=== PATIENT | female | born 1930 | race Caucasian/White ===

== ENCOUNTER 2017-03-29 20:55 | Emergency (ER) | payer OTHER ==
--- NOTE | 2017-03-29 21:06 | PDOC ---
History of Present Illness - General History Source: Patient Exam Limitations: No Limitations - History of Present Illness Initial Comments: 03/29/17 21:32 HPI: The patient is a 86 year old female, with a significant past medical history of hypertension and on dialysis, who presents to the emergency department, s/p fall with a laceration on her head and a sore buttocks. As per patient she was sitting on her desk chair she moved forward and slipped off her chair. She reports she does not know what she scraped her head on but, believes it is the chair. She reports she was able to ambulate after the fall. She reports pain to her buttocks. The patient reports she is on dialysis. Her last treatment was yesterday and her next will be tomorrow. She denies any loss of consciousness. She denies recent fevers, chills, headache or dizziness. She denies recent nausea, vomit, diarrhea or constipation. She denies recent dysuria, frequency, urgency or hematuria. She denies recent chest pain or shortness of breath. PAST MEDICAL HISTORY: Hypertension and on dialysis PAST SURGICAL HISTORY: no significant history FAMILY HISTORY: no pertinent history SOCIAL HISTORY: Pt lives with family. MEDICATIONS: reviewed ALLERGIES: As per nursing notes ROS: General: No fevers or chills, no weakness, no weight loss HEENT: +Laceration to the head. No change in vision. No sore throat,. No ear pain CardioVascular: No chest pain or shortness of breath Respiratory:No cough, or wheezing. Gastrointestinal: no nausea, vomiting, diarrhea or constipation, No rectal bleeding Genitourinary: No dysuria, hematuria, or frequency Musculoskeletal: +Soreness to the buttocks. No joint or muscle swelling Neurologic: No headache, vertigo, dizziness or loss of consciousness Psychiatric: nor depression Skin: No rashes or easy bruising Endocrine: no increased thirst or abnormal weight change Allergic: no skin or latex allergy All other systems reviewed and normal EXAM: GENERAL: The patient is awake, alert, and fully oriented, in no acute distress. HEAD: +1cm laceration to the posterior occipital region. Actively bleeding. EYES: Pupils equal, round and reactive to light, extraocular movements intact, sclera anicteric, conjunctiva clear. EXTREMITIES: Normal range of motion, no edema. NEUROLOGICAL: +Sacral tenderness. No cervical, lumbar, or thoracic tenderness. Normal speech. PSYCH: Normal mood, normal affect. SKIN: Warm, Dry, normal turgor, no rashes or lesions noted. <Emily Oliveros - Last Filed: 03/29/17 21:56> - General History Source: Patient Exam Limitations: No Limitations - History of Present Illness Initial Comments: A portion of this note was documented by scribe services under my direction. I have reviewed the details of the note, within reason, and agree with the documentation. The case summary and management plan written by me. Procedure note laceration repair with amanda Scalp laceration was cleaned with peroxide and closed with 4 amanda after being anesthetized with 1% lidocaine with epinephrine. Patient tolerated well Sterile dressing was applied Assessment and plan: This is an 86-year-old female who came in status post slipping out of her chair and hitting her head on the back of her chair. Patient came in with a small laceration to the back of her scalp. The laceration was cleaned stapled and a dressing was applied. Patient was had some coccyx and sacral tenderness and x- rays were done which were negative for any acute pathology. Patient did not want to wait for the results of her head CT which ended up being negative so she eloped. 03/29/17 22:56 <Vishal Frausto I - Last Filed: 03/29/17 22:59> - General Chief Complaint: Injury Stated Complaint: SLIPPED OUT OF CHAIR LACERATION TO HEAD Time Seen by Provider: 03/29/17 21:00 Past History <Emily Oliveros - Last Filed: 03/29/17 21:56> - Past Medical History Diabetes: No HTN: Yes - Suicide/Smoking/Psychosocial Hx Smoking History: Never smoked Hx Alcohol Use: Yes Substance Use Type: Alcohol <Vishal Frausto I - Last Filed: 03/29/17 22:59> - Past Medical History Allergies/Adverse Reactions: Allergies Allergy/AdvReac Type Severity Reaction Status Date / Time guaifenesin [From Blueitussin] Allergy Verified 03/29/17 21:06 Home Medications: Ambulatory Orders Amlodipine Besylate [Norvasc -] 2.5 mg PO DAILY 03/01/14 Enalapril Maleate 2.5 mg PO DAILY 03/01/14 Hydrochlorothiazide [Hctz -] 12.5 mg PO BID 03/01/14 Verapamil HCl [Verapamil ER] 120 mg PO DAILY 03/01/14 *Physical Exam - Vital Signs Last Vital Signs Temp Pulse Resp BP Pulse Ox 97.5 F L 60 16 149/64 96 03/29/17 21:12 03/29/17 21:12 03/29/17 21:12 03/29/17 21:12 03/29/17 21:12 <Emily Oliveros - Last Filed: 03/29/17 21:56> *DC/Admit/Observation/Transfer - Attestations Scribe Attestion: 03/29/17 21:34 Documentation prepared by Emily Oliveros, acting as medical coding specialist for Vishal Frausto MD. <Emily Oliveros - Last Filed: 03/29/17 21:56> <Vishal Frausto I - Last Filed: 03/29/17 22:59> Diagnosis at time of Disposition: SCALP LACERATION - Discharge Dispostion Disposition: ELOPED Condition at time of disposition: Stable
[2017-03-29 21:19] VITALS: BP 149/64; PULSE 60; TEMP 97.5; BMI 15.0
== END 2017-03-29 22:54 | disposition left against medical advice (07) ==
LOC: FER 20:55
PROC: 0HQ0XZZ Repair Scalp Skin, External Approach (ICD-10-PCS; principal; 2017-03-29)
DX: S01.01XA Laceration without foreign body of scalp, initial encounter (principal); W07.XXXA Fall from chair, initial encounter; Y93.89 Activity, other specified; Y92.89 Other specified places as the place of occurrence of the external cause; I10 Essential (primary) hypertension; Z99.2 Dependence on renal dialysis
CPT/HCPCS: 70460-TC; 72220-TC-FY; 99281-25